=== PATIENT | female | born 1980 | race Asian ===

== ENCOUNTER → 2016-10-18 | Day surgery (SDC) | payer BC, OTHER ==
[~2016-10-18] MED LIST: Buffered Lidocaine 1% SYR 3ML* 3 ML/SYR SYRINGE INTRADERM ONE; Dexamethasone IV* 4 MG/ML 1 ML (4 MG) ONE; Famotidine IV* 10 MG/ML 2 ML (20 mg) IV ONE; Famotidine IV* 10 MG/ML 2 ML (20 mg) ONE; HYDROmorphone INJ* 1 MG/ML CARPUJECT SYRINGE IV PRN; Lidocaine 2% EPI 1:200000 MPF* 20 ML VIAL ONE; Lidocaine 2% MPF* 2 ML VIAL ONE; Metoclopramide TAB* 10 MG ONE; Metoclopramide TAB* 10 MG PO ONE; Midazolam* 1 MG/ML 5 ML VIAL (5 MG) ONE; Ondansetron INJ* 2 MG/ML VIAL ONE; Ondansetron ODT TAB* 4 MG PO PRN; Oxymetazoline 0.05% NASAL SPR* 15 ML BTL ONE; Propofol* 10 MG/ML 20 ML BTL IV PUSH ONE; fentaNYL* 50 MCG/ML 2 ML VIAL (100 MCG VIAL) IV PRN; fentaNYL* 50 MCG/ML 2 ML VIAL (100 MCG VIAL) ONE; oxyCODONE/Acetamin 5/325 MG* TAB ONE; oxyCODONE/Acetamin 5/325 MG* TAB PO PRN
[2016-10-18 08:02] LABS: Manual Entry Verification AS; UR Preg Internal Control QC Line Present; UR Preg Kit Lot# 6060104
[2016-10-18 11:35] VITALS: BP 120/91
--- NOTE | 2016-10-18 12:18 | OP ---
DATE OF OPERATION: 10/18/16 - [facility] DATE OF : 84 SURGEON: Wilfred Rivera MD ANESTHESIOLOGIST: Dav Corona MD ANESTHESIA: General PRE-OP DIAGNOSES: Deviated nasal septum and nasal dyspnea. POST-OP DIAGNOSES: Deviated nasal septum and nasal dyspnea. OPERATIVE PROCEDURE: Septoplasty and bilateral submucosal resection of the inferior turbinates. INDICATIONS: This is a 36-year-old female with longstanding history of nasal dyspnea, had tried nasal medication including nasal steroids for long periods of time without improvement, obvious deviation of the septum in the region of the nasal valve. DESCRIPTION OF PROCEDURE: The patient was brought to the operating room. General anesthesia was given. The patient was intubated with LMA. Nose was decongested with Afrin-placed pledgets. Then, subsequently 2% lidocaine with epinephrine was infiltrated into the mucosa of the septum on both sides of the inferior turbinates. Left hemitransfixion incision created. Mucoperichondrial flap was elevated. Quadrangular cartilage was disarticulated along the vomer- ethmoidal complex posteriorly along the maxillary crest. Portion of the crest was removed. Portion of the vomer-ethmoidal bone was removed, specifically a large spur on the left side on the back. Next, the quadrangular cartilage was scored on its concave surface, replaced in the midline, and secured with mattress sutures of chromic. Mia splint was then applied which was secured with 2-0 silk. Then, I turned my attention to the inferior turbinates. A small incision was made in the inferior turbinate mucosa. Submucosal elevation was carried out. A microshaver was used to remove the submucosal tissue to the point where some of the mucosal bone was removed and some portions of the submucosal tissue and much of the mucosa were spared. Ishmael packs were placed for hemostasis of the inferior turbinates and nasal dressing was applied. The patient was awakened and sent to the recovery room in stable condition. Instrument and sponge counts correct. Blood loss minimal. [id number] #: [id number] MTDD
== END | disposition home or self-care (01) ==
LOC: OR 07:02
PROVIDERS: ATTEND Otolaryngology
DX: J34.2 Deviated nasal septum (principal); J34.3 Hypertrophy of nasal turbinates
CPT/HCPCS: 81025; A9270-GY; J1100; J2250; J2405; J2704; J3010

== ENCOUNTER 2017-06-29 11:49 | Emergency (ER) | payer BC ==
--- NOTE | 2017-06-29 13:55 | UC ---
Back Pain HPI - HPI Summary HPI Summary: PROGRESSIVELY WORSENING BILATERAL HIP AND LOW BACK PAIN FOR 9 DAYS. NO DISCRETE TRAUMA OR INJURY. PT HAS HAD INTERMITTENT SIMILAR PAIN FOR YEARS. NO DIAGNOSIS EVER GIVEN. PAIN IS WORSE WHEN SITTING OR STANDING. NOT WORSE WITH AMBULATION. HAS DIFFICULTY EVEN DRIVING DUE TO PAIN. NO NUMBNESS/WEAKNESS OR SADDLE ANESTHESIA. IN THE PAST TOOK A MEDROL DOSE FABIANA AND FELT BETTER ON THE FIRST DAY BUT NOT VERY HELPFUL ON SUBSEQUENT DAYS. - History of Current Complaint Chief Complaint: UCBackPain Stated Complaint: BACK AND HIP PAIN Time Seen by Provider: 06/29/17 13:37 Hx Obtained From: Patient Hx Last Menstrual Period: 06/15/17 Onset/Duration: Sudden Onset, Still Present Timing: Constant Severity Initially: Severe Severity Currently: Severe Pain Intensity: 10 - PT IN EXAM ROOM IN NO ACUTE DISTRESS Pain Scale Used: 0-10 Numeric Back Pain: Is Discrete @ - LOW BACK Character: Dull, Aching Alleviating Factor(s): Position - LAYING DOWN Associated Signs And Symptoms: Negative: Swelling, Redness, Bruising, Fever, Weakness, Numbness, Tingling, Abdominal Pain, Flank Pain, Bladder Incontinence, Bowel Incontinence - Allergies/Home Medications Allergies/Adverse Reactions: Allergies Allergy/AdvReac Type Severity Reaction Status Date / Time Environmental Allergies Allergy Intermediate Eyes Uncoded 06/29/17 12:29 Itchy/Swollen/Red/Watery Home Medications: Home Medications Sertraline* [Zoloft*] 50 mg PO DAILY 06/29/17 [History Confirmed 06/29/17] PMH/Surg Hx/FS Hx/Imm Hx Previously Healthy: Yes Other History Of: Negative For: HIV, Hepatitis B, Hepatitis C, Anticoagulant Therapy - Surgical History Surgical History: Yes Surgery Procedure, Year, and Place: 05/2004 Right Wrist(NO METAL) JUST A DEBRIDEMENT septoplasty - Family History Known Family History: Positive: None Negative: Hypertension, Diabetes - Social History Alcohol Use: Rare Substance Use Type: None Smoking Status (MU): Never Smoked Tobacco When Did the Patient Quit Smoking/Using Tobacco: 2006 Review of Systems Constitutional: Negative Skin: Negative Respiratory: Negative Cardiovascular: Negative Gastrointestinal: Negative Genitourinary: Negative Musculoskeletal: Arthralgia, Myalgia All Other Systems Reviewed And Are Negative: Yes Physical Exam Triage Information Reviewed: Yes Appearance: Well-Appearing, No Pain Distress, Well-Nourished Vital Signs: Initial Vital Signs Temp 98.2 F 06/29/17 12:30 Pulse 110 06/29/17 12:30 Resp 22 06/29/17 12:30 Pulse Ox 100 06/29/17 12:30 Vital Signs Reviewed: Yes Eyes: Positive: Conjunctiva Clear ENT: Positive: Hearing grossly normal Neck: Positive: Supple Respiratory: Positive: No respiratory distress, No accessory muscle use Cardiovascular: Positive: Pulses Normal Abdomen Description: Positive: Soft. Negative: CVA Tenderness (R), CVA Tenderness (L), Distended, Guarding Musculoskeletal: Positive: ROM Intact, No Edema, Other: - NO TENDERNESS OVER ANY BONY PROMINENCES OR OVER MUSCULATURE. NEG MARLEN/FAIR. NEG SLR. Neurological: Positive: Alert Psychological: Positive: Age Appropriate Behavior Skin: Negative: rashes Diagnostics - Laboratory Diagnostic Studies Completed/Ordered: URINE DIP UNREMARKABLE Back Pain Course/Dx - Differential Dx/Diagnosis Provider Diagnoses: LOW BACK/BILATERAL HIP PAIN - Physician Notifications Discussed Care With: Cristal Man - TRANSFER OF CARE TO DR. MAN AT SHIFT CHANGE Time Discussed With Above Provider: 14:35 Discharge - Discharge Plan Condition: Stable Disposition: OTHER Discharge Disposition Comment: TRANSFER OF CARE TO DR. MAN AT SHIFT CHANGE Referrals: Jenn Villagran MD [Primary Care Provider] -
--- NOTE | 2017-06-29 14:44 | RAD ---
INDICATION: Low back pain. COMPARISON: Comparison is made with a prior x-ray study of the lumbar spine from August 02, 2007. TECHNIQUE: 5 views of the lumbar spine were obtained including lateral, oblique, AP and a coned-down lateral view of the lumbar sacral junction. FINDINGS: The vertebra are in normal alignment. No fracture is seen. There is mild to moderate disc space narrowing and endplate spurring present at the L4-L5 and L5-S1 levels. IMPRESSION: MILD TO MODERATE DEGENERATIVE DISC DISEASE AT THE L4-L5 AND L5-S1 LEVELS.
--- NOTE | 2017-06-29 14:45 | RAD ---
INDICATION: Bilateral hip pain COMPARISON: CT September 02, 2015 TECHNIQUE: An AP view of the pelvis and AP views of the hip in neutral and abducted position were obtained FINDINGS: Bones: There are no acute bony findings. There is stable cystic change about the lateral femoral necks likely related to femoral-acetabular impingement Joint spaces: The hips articulate normally. The joint spaces are preserved. SI joints/symphysis: The SI joints and symphysis are intact. Other: None IMPRESSION: NO ACUTE BONY FINDINGS. SUSPECT FEMORAL-ACETABULAR IMPINGEMENT
[2017-06-29] MEDS ORDERED: Ketorolac INJ* 60 MG/2 ML VIAL IM ONE (14:49)
[2017-06-29 15:07] VITALS: BP 122/68
--- NOTE | 2017-06-29 21:08 | UC ---
Bolivar Bocanegra Nikita, scribed for Cristal Bradshaw DO on 06/29/17 at 1506 . Progress - Progress Note Progress Note: Pt was signed out from Dr. Mariano, awaiting Lumbar and Hip XRs. Lumbar Spine XR reveals MILD TO MODERATE DEGENERATIVE DISC DISEASE AT THE L4-L5 AND L5-S1 LEVELS. Hip XR reveals NO ACUTE BONY FINDINGS. SUSPECT FEMORAL-ACETABULAR IMPINGEMENT. [facility] physician has reviewed this radiology report and agrees. Reviewed pt with Dr. Mariano. Reviewed XRs. No acute findings. Pt agreed to try toradol shot followed by steroid burst.The patients condition is stable and will be discharged to home. The documentation as recorded by the Bolivar carey Nikita accurately reflects the service I personally performed and the decisions made by Leeann galvin Michelle A, DO.
== END 2017-06-29 15:39 | disposition home or self-care (01) ==
LOC: UCEAST 11:49
DX: M54.5 Low back pain (principal); M25.552 Pain in left hip; M25.551 Pain in right hip
CPT/HCPCS: 72110; 73523; 81003; 96372; 99212; G0463; J1885

== ENCOUNTER 2017-09-22 20:18 | Observation (INO) | payer BC ==
[2017-09-22] MEDS ORDERED: HYDROmorphone INJ* 1 MG/ML CARPUJECT SYRINGE IV ONE (21:46)
[2017-09-22] MEDS ORDERED: Ondansetron INJ* 2 MG/ML VIAL IV ONE (21:46)
[2017-09-22] MEDS ORDERED: Ketorolac INJ* 30 MG/ML 1 ML VIAL IV ONE (21:46)
[2017-09-22] MEDS ORDERED: NS 0.9% 1000 ML* 1,000 ML IV ONE (21:46)
[2017-09-22] MEDS ORDERED: LORazepam INJ* 2 MG/ML 1 ML VIAL IV PUSH ONE (23:25)
[2017-09-22] MEDS ORDERED: LORazepam INJ* 2 MG/ML 1 ML VIAL IV ONE (23:29)
[2017-09-23] MEDS ORDERED: LORazepam TAB(*) 1 MG PO ONE (00:37)
[2017-09-23] MEDS ORDERED: oxyCODONE/Acetamin 5/325 MG* TAB PO ONE (00:37)
--- NOTE | 2017-09-23 00:42 | ED ---
Eric Bocanegra Natalie, scribed for Ortiz Brambila MD on 09/22/17 at 2155 . Back Pain - HPI Summary HPI Summary: The pt is a 37 y/o F presenting to the ED c/o sudden back pain onset 18:00. She was standing at the table and got a burning sensation through lower back, causing her to fall to the floor screaming in pain. The pain is rated 8/10 in severity. The pain was described as and fuzzy and sharp. The pain is aggravated by movement and is alleviated by rest. The patient has treated the pain with Flexeril at 18:00 and Fentanyl BUTTON SPINDLER to no relief. Pt additionally c/o numbness. Pt denies problems with urination and BM. Pt has had back problems in the past, but this is more severe than normal. Shes had an MRI on her back in the past. She goes to physical therapy regularly. - History of Current Complaint Chief Complaint: EDBackInjuryPain Stated Complaint: BACK PAIN Time Seen by Provider: 09/22/17 21:17 Hx Obtained From: Patient Hx Last Menstrual Period: 11/20/15 Onset/Duration: Lasting Hours - started at 18:00, Still Present Onset/Duration: Started Hours Ago, Still Present Timing: Constant Severity Initially: Severe Severity Currently: Severe Pain Intensity: 8 Pain Scale Used: 0-10 Numeric Character: Sharp, Burning Aggravating Symptom(s): Movement Alleviating Symptom(s): Rest Associated Signs And Symptoms: Positive: Numbness, Other - NEGATIVE: abnormal urination and BM - Allergies/Home Medications Allergies/Adverse Reactions: Allergies Allergy/AdvReac Type Severity Reaction Status Date / Time Environmental Allergies Allergy Intermediate Eyes Uncoded 06/29/17 12:29 Itchy/Swollen/Red/Watery PMH/Surg Hx/FS Hx/Imm Hx Previously Healthy: No Endocrine/Hematology History: Denies: Hx Anticoagulant Therapy, Hx Diabetes, Hx Systemic Lupus Erythematosus, Hx Thyroid Disease Cardiovascular History: Denies: Hx Congestive Heart Failure, Hx Hypertension, Hx Pacemaker/ICD Respiratory History: Reports: Hx Asthma - Mild Asthma--not using an inhaler at this time. Denies: Hx Chronic Obstructive Pulmonary Disease (COPD), Hx Lung Cancer, Hx Pneumonia, Hx Pulmonary Embolism GI History: Denies: Hx Gall Bladder Disease, Hx Gastrointestinal Bleed, Hx Ulcer, Hx Urosepsis History: Denies: Hx Kidney Stones, Hx Renal Disease Musculoskeletal History: Reports: Other Musculoskeletal History - degenerative disc lower lumbar Denies: Hx Rheumatoid Arthritis, Hx Osteoporosis Sensory History: Reports: Hx Contacts or Glasses - both - will wear glasses DOS Denies: Hx Hearing Aid Opthamlomology History: Reports: Hx Contacts or Glasses - both - will wear glasses DOS Neurological History: Denies: Hx Dementia, Hx Migraine, Hx Seizures, Hx Transient Ischemic Attacks (TIA) Psychiatric History: Reports: Hx Depression Denies: Hx Anxiety, Hx Panic Disorder, Hx Schizophrenia, Hx Bipolar Disorder - Surgical History Surgery Procedure, Year, and Place: 05/2004 Right Wrist(NO METAL) JUST A DEBRIDEMENT Hx Anesthesia Reactions: No Infectious Disease History: No Infectious Disease History: Denies: Hx Clostridium Difficile, Hx Hepatitis, Hx Human Immunodeficiency Virus (HIV), Hx of Known/Suspected MRSA, Hx Shingles, Hx Tuberculosis, Hx Known/ Suspected VRE, Hx Known/Suspected VRSA, History Other Infectious Disease, Traveled Outside the [place] in Last 30 Days - Family History Known Family History: Negative: Hypertension, Diabetes - Social History Alcohol Use: Rare Substance Use Type: Reports: None Smoking Status (MU): Never Smoked Tobacco Review of Systems Positive: Other - normal BM Positive: other - normal urination Positive: Other - lower back pain Positive: Numbness All Other Systems Reviewed And Are Negative: Yes Physical Exam Triage Information Reviewed: Yes Vital Signs On Initial Exam: Initial Vitals Temp Pulse Resp BP Pulse Ox 98.5 F 73 14 141/74 100 09/22/17 20:19 09/22/17 20:19 09/22/17 20:19 09/22/17 20:19 09/22/17 20:19 Vital Signs Reviewed: Yes Appearance: Positive: Pain Distress - mild pain distress at rest Skin: Positive: Warm, Skin Color Reflects Adequate Perfusion, Dry Head/Face: Positive: Normal Head/Face Inspection Eyes: Positive: EOMI, BARRIE ENT: Positive: Normal ENT inspection Neck: Positive: Supple, Nontender Respiratory/Lung Sounds: Positive: Clear to Auscultation, Breath Sounds Present Cardiovascular: Positive: RRR Abdomen Description: Positive: Nontender, Soft Bowel Sounds: Positive: Present Musculoskeletal: Positive: Strength/ROM Intact, Other - moderate pain distress in legs, able to move legs Neurological: Positive: Normal, Sensory/Motor Intact, Alert, Oriented to Person Place, Time, Other - no neurological deficit Psychiatric: Positive: Affect/Mood Appropriate - Martine Coma Scale Coma Scale Total: 15 Diagnostics - Vital Signs Vital Signs Temp Pulse Resp BP Pulse Ox 09/22/17 20:43 65 115/81 100 09/22/17 20:37 63 100 09/22/17 20:19 98.5 F 73 14 141/74 100 - Laboratory Lab Statement: Any lab studies that have been ordered have been reviewed, and results considered in the medical decision making process. Back Pain Course/Dx - Course Course Of Treatment: BP noted and advised to follow up with PCP. Allergies noted. Medications reviewed. NO FOCAL NEUROLOGIC DEFICIT BY HISTORY OR EXAM IN THE ED. F/U PMD; RETURN IF WORSE. - Diagnoses Provider Diagnoses: Low back pain Discharge - Discharge Plan Condition: Stable Disposition: HOME Prescriptions: Lorazepam [Ativan 1 MG TAB] 1 mg PO Q8H PRN #10 tab MDD 3 PRN Reason: Pain oxyCODONE/Acetamin 5/325 MG* [Percocet 5/325 TAB*] 1 tab PO Q4H PRN #20 tab MDD 6 PRN Reason: Pain Patient Education Materials: Acute Low Back Pain (ED) Referrals: Mercedez Shaver MD [Primary Care Provider] - Additional Instructions: FOLLOW UP WITH YOUR DOCTOR. RETURN TO THE EMERGENCY DEPARTMENT FOR ANY WORSENING OF YOUR CONDITION; PAIN, WEAKNESS, DIFFICULTY CONTROLLING BOWEL OR BLADDER OR QUESTIONS OR CONCERNS. The documentation as recorded by the Eric carey Natalie accurately reflects the service I personally performed and the decisions made by me, Ortiz Brambila MD.
[2017-09-23] MEDS ORDERED: NS 0.9% 1000 ML* 1,000 ML IV ONE (00:53)
--- NOTE | 2017-09-23 03:15 | ED ---
Alfredo Bocanegra Tiffany, scribed for Mark Anthony Alcaraz on 09/23/17 at 0137 . Progress - Progress Note Progress Note: CT Lumbar Spine reveals, per radiologist, central disc bulge L4-L5 with mild stenosis. ED physician has reviewed this report. Course/Dx - Course Course Of Treatment: CT Lumbar Spine reveals, per radiologist, central disc bulge L4-L5 with mild stenosis. Patient is unable to walk. She will be admitted to the hospitalist. The patient is agreeable with this plan. - Diagnoses Provider Diagnoses: Intractable low back pain - Provider Notifications Discussed Care Of Patient With: Horacio Harmon Time Discussed With Above Provider: 01:45 Instructed by Provider To: Other - Dr. Harmon (hospitalist) agrees to admit the patient. The documentation as recorded by the Alfredo carey Tiffany accurately reflects the service I personally performed and the decisions made by Kieran galvin Emmanuel.
[2017-09-23 03:39] LABS: Hematocrit 41 % (35-47); Hemoglobin 13.8 g/dl (12.0-16.0); Mean Corpuscular HGB Conc 34 g/dl (31-36); Mean Corpuscular Hemoglobin 30 pg (27-31); Mean Corpuscular Volume 88 fL (80-97); Mean Platelet Volume 8 um3 (7.4-10.4); Red Blood Count 4.64 10^6/ul (4.0-5.4); Red Cell Distribution Width 13 % (10.5-15); White Blood Count 7.8 10^3/ul (3.5-10.8)
[2017-09-23 03:52] LABS: ALT 12 U/L (7-52); AST 13 U/L (13-39); Albumin 4.1 g/dL (3.2-5.2); Alkaline Phosphatase 38 U/L (34-104); Anion Gap 3 mmol/L (2-11); BUN/Creatinine Ratio 13.5 (8-20); Blood Urea Nitrogen 10 mg/dL (6-24); CO2 Carbon Dioxide 26 mmol/L (22-32); Calcium 8.6 mg/dL (8.6-10.3); Chloride 108 mmol/L (101-111); EGFR African American 114.9 (>60); EGFR Non-African American 89.3 (>60); Globulin 2.4 g/dL (2-4); Glucose 100 mg/dL (70-100); Potassium 4.2 mmol/L (3.5-5.0); Sodium 137 mmol/L (133-145); Total Protein 6.5 g/dL (6.4-8.9)
[2017-09-23 05:23] LABS: Urine Bacteria Absent (Absent); Urine Bilirubin Negative (Negative); Urine Glucose Negative (Negative); Urine Nitrite Negative (Negative)
--- NOTE | 2017-09-23 05:42 | HP ---
H&P (Free Text) History and Physical: PCP: Vahe Shaver MD Date/Time: 09/23/2017 0515 CC: chronic LBP w/ exacerbation HPI: Mrs Masterson is a 37YO female HX chronic LBP who has been having increased pain with sitting & standing for the past 2 days. Last night while sitting at the dinner table massaging her B flanks she experienced sudden severe increase in pain causing her vision to blur and her whole body to "buzz" and resulting in a fall. EMS was called by her partner. She denies weakness, loss of bowel/bladder or incontinence, rash, open wound, or other issues. PMedHx chronic LBP depression anxiety Ambulatory Orders HYDROcodone/ACET. 7.5/325 LIQ* [Lortab Elixir 7.5/325 per 15 ml *] 15 ml PO Q4H #300 ml MDD 6 10/18/16 Sertraline* [Zoloft*] 50 mg PO DAILY 06/29/17 predniSONE TAB* [Deltasone TAB*] 40 mg PO DAILY #10 tab 06/29/17 Lorazepam [Ativan 1 MG TAB] 1 mg PO Q8H PRN #10 tab MDD 3 09/23/17 oxyCODONE/Acetamin 5/325 MG* [Percocet 5/325 TAB*] 1 tab PO Q4H PRN #20 tab MDD 6 09/23/17 Allergies Environmental Allergies Allergy (Intermediate, Uncoded 06/29/17 12:29) Eyes Itchy/Swollen/Red/Watery PSurgHx TFCC debridement septoplasty SocHx: no tobacco, alcohol, or recreational drugs; lives with a female domestic partner; currently unemployed, 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 Father passed at 66 2nd mesothelioma. 1/ 2 sister has significant joint & mobility issues, has been recommended for B THAs & B TKAs. ROS: as above, otherwise reviewed and all were negative vitals: Vital Signs Temp 36.9 C 09/22/17 20:19 Pulse 70 09/22/17 23:00 Resp 16 09/23/17 01:49 BP 117/70 09/22/17 23:00 Pulse Ox 100 09/22/17 23:00 Intake & Output 09/22/17 09/22/17 09/23/17 11:59 23:59 11:59 Intake Total 1000 Balance 1000 Weight 76.204 kg Intake: IV Fluids 1000 Constitutional: NAD, normally developed, well-nourished female HEENM: atraumatic; sclera/conjunctiva: anicteric/clear; hearing: clinically intact; oropharynx: clear, mucosa moist Neck: soft tissue: non-tender; thyroid: normal Pulmonary: clear to auscultation bilaterally, good aeration, no accessory muscle use CV: RR/RR, normal S1S2, no carotid bruit, no jugular venous distention, 2+ B DP/ PT, no edema Abdominal: soft, non-distended, non-tender, no rebound/guarding/rigidity, normoactive bowel sounds, no hepatosplenomegaly or masses, no costovertebral angle tenderness Musculoskeletal: general: grossly intact; gait: stable, cautious Integumental: normal appearance and texture of exposed skin Psychiatric orientation: AA&O to PPS affect: calm mood: cooperative eye contact: good content: reliable responses: timely insight: good Testing: Lab Results 09/23/17 09/23/17 09/23/17 Range/Units 03:30 03:30 03:30 WBC 7.8 (3.5-10.8) 10^3/ul RBC 4.64 (4.0-5.4) 10^6/ul Hgb 13.8 (12.0-16.0) g/dl Hct 41 (35-47) % MCV 88 (80-97) fL MCH 30 (27-31) pg MCHC 34 (31-36) g/dl RDW 13 (10.5-15) % Plt Count 246 (150-450) 10^3/ul MPV 8 (7.4-10.4) um3 Neut % (Auto) 64.0 (38-83) % Lymph % (Auto) 29.3 (25-47) % Lasalle % (Auto) 4.9 (1-9) % Eos % (Auto) 1.4 (0-6) % Baso % (Auto) 0.4 (0-2) % Absolute Neuts (auto) 5.0 (1.5-7.7) 10^3/ul Absolute Lymphs (auto) 2.3 (1.0-4.8) 10^3/ul Absolute Monos (auto) 0.4 (0-0.8) 10^3/ul Absolute Eos (auto) 0.1 (0-0.6) 10^3/ul Absolute Basos (auto) 0 (0-0.2) 10^3/ul Absolute Nucleated RBC 0 10^3/ul Nucleated RBC % 0 INR (Anticoag Therapy) 1.10 H (0.77-1.02) APTT 33.0 (26.0-36.3) seconds Sodium 137 (133-145) mmol/L Potassium 4.2 (3.5-5.0) mmol/L Chloride 108 (101-111) mmol/L Carbon Dioxide 26 (22-32) mmol/L Anion Gap 3 (2-11) mmol/L BUN 10 (6-24) mg/dL Creatinine 0.74 (0.51-0.95) mg/dL Est GFR ( Amer) 114.9 (>60) Est GFR (Non-Af Amer) 89.3 (>60) BUN/Creatinine Ratio 13.5 (8-20) Glucose 100 (70-100) mg/dL Calcium 8.6 (8.6-10.3) mg/dL Total Bilirubin 0.90 (0.2-1.0) mg/dL AST 13 (13-39) U/L ALT 12 (7-52) U/L Alkaline Phosphatase 38 (34-104) U/L Total Protein 6.5 (6.4-8.9) g/dL Albumin 4.1 (3.2-5.2) g/dL Globulin 2.4 (2-4) g/dL Albumin/Globulin Ratio 1.7 (1-3) Beta HCG, Quant < 0.60 mIU/mL Urine Color Urine Appearance Urine pH (5-9) Ur Specific [place] (1.010-1.030) Urine Protein (Negative) Urine Ketones (Negative) Urine Blood (Negative) Urine Nitrate (Negative) Urine Bilirubin (Negative) Urine Urobilinogen (Negative) Ur Leukocyte Esterase (Negative) Urine WBC (Auto) (Absent) Urine RBC (Auto) (Absent) Ur Squamous Epith Cells (Absent) Urine Bacteria (Absent) Urine Glucose (Negative) 09/23/17 Range/Units 05:10 WBC (3.5-10.8) 10^3/ul RBC (4.0-5.4) 10^6/ul Hgb (12.0-16.0) g/dl Hct (35-47) % MCV (80-97) fL MCH (27-31) pg MCHC (31-36) g/dl RDW (10.5-15) % Plt Count (150-450) 10^3/ul MPV (7.4-10.4) um3 Neut % (Auto) (38-83) % Lymph % (Auto) (25-47) % Lasalle % (Auto) (1-9) % Eos % (Auto) (0-6) % Baso % (Auto) (0-2) % Absolute Neuts (auto) (1.5-7.7) 10^3/ul Absolute Lymphs (auto) (1.0-4.8) 10^3/ul Absolute Monos (auto) (0-0.8) 10^3/ul Absolute Eos (auto) (0-0.6) 10^3/ul Absolute Basos (auto) (0-0.2) 10^3/ul Absolute Nucleated RBC 10^3/ul Nucleated RBC % INR (Anticoag Therapy) (0.77-1.02) APTT (26.0-36.3) seconds Sodium (133-145) mmol/L Potassium (3.5-5.0) mmol/L Chloride (101-111) mmol/L Carbon Dioxide (22-32) mmol/L Anion Gap (2-11) mmol/L BUN (6-24) mg/dL Creatinine (0.51-0.95) mg/dL Est GFR ( Amer) (>60) Est GFR (Non-Af Amer) (>60) BUN/Creatinine Ratio (8-20) Glucose (70-100) mg/dL Calcium (8.6-10.3) mg/dL Total Bilirubin (0.2-1.0) mg/dL AST (13-39) U/L ALT (7-52) U/L Alkaline Phosphatase (34-104) U/L Total Protein (6.4-8.9) g/dL Albumin (3.2-5.2) g/dL Globulin (2-4) g/dL Albumin/Globulin Ratio (1-3) Beta HCG, Quant mIU/mL Urine Color Yellow Urine Appearance Clear Urine pH 6.0 (5-9) Ur Specific [place] 1.011 (1.010-1.030) Urine Protein Negative (Negative) Urine Ketones Trace H (Negative) Urine Blood 3+ H (Negative) Urine Nitrate Negative (Negative) Urine Bilirubin Negative (Negative) Urine Urobilinogen Negative (Negative) Ur Leukocyte Esterase Negative (Negative) Urine WBC (Auto) Absent (Absent) Urine RBC (Auto) Trace(0-2/hpf) (Absent) Ur Squamous Epith Cells Present H (Absent) Urine Bacteria Absent (Absent) Urine Glucose Negative (Negative) CT L-spine WO, personally reviewed: IMPRESSION: Central disc bulge L4-L5 Impression: 37F HX chronic LBP presents with exacerbation, intractable DIAGNOSIS & PLAN Primary acute on chronic LBP, intractable : pain control : PT evaluation : supportive care Secondary depression : review meds once reconciled anxiety : review meds once reconciled Admission Rational: observation for intractable LBP DVTp: DARSHAN Code Status: full
[2017-09-23] MEDS ORDERED: Ondansetron INJ* 2 MG/ML VIAL IV PRN (05:52)
[2017-09-23] MEDS ORDERED: Acetaminophen TAB* 325 MG PO PRN (05:52)
[2017-09-23 06:07] LABS: C Reactive Protein < 1.00 mg/L (< 5.00)
[2017-09-23] MEDS: fentaNYL* 50 MCG/ML 2 ML VIAL (100 MCG VIAL) IV SLOW PU PRN ×3 (07:05→18:10)
[2017-09-23] MEDS: Baclofen TAB* 10 MG PO PRN ×3 (07:11→21:23)
--- NOTE | 2017-09-23 08:59 | RAD ---
Indication: Low back pain. CT of the lumbar spine was obtained in the axial plane. Sagittal and coronal reconstructed images were obtained. The vertebral bodies appear normal in height. No compression fracture is noted. At L5-S1 there is degenerative disc disease present. Spondylitic ridge flattens the thecal sac. No central or foraminal stenosis is noted. At L4-L5 there is degenerative disc disease. Small to moderate central disc protrusion indents the thecal sac with mild facet and ligamentous hypertrophy. No foraminal stenosis is noted. At L3-L4, L2-L3 and L1-L2 disc space is normal. Aorta and visualized kidneys are grossly unremarkable. IMPRESSION: At L4-L5 small central disc protrusion indents the thecal sac with mild ligamentous hypertrophy. There may be some mild spinal stenosis present.
[2017-09-23] MEDS: Docusate CAP* 100 MG PO SCH ×2 (09:45→21:22)
[2017-09-23] MEDS: Omeprazole CAP* 20 MG PO SCH (09:46)
[2017-09-23] MEDS: oxyCODONE TAB* 5 MG TAB PO PRN ×4 (09:47→22:36)
[2017-09-23] MEDS: traMADol TAB* 50 MG PO PRN ×2 (13:33→21:23)
[2017-09-23] MEDS: buPROPion SR TAB.SR* 150 MG PO SCH (16:01)
[2017-09-23] MEDS: predniSONE TAB* 50 MG PO SCH (16:01)
[2017-09-24] MEDS: oxyCODONE TAB* 5 MG TAB PO PRN ×3 (03:30→13:07)
[2017-09-24] MEDS: traMADol TAB* 50 MG PO PRN (03:30)
[2017-09-24] MEDS: Omeprazole CAP* 20 MG PO SCH (05:34)
[2017-09-24] MEDS: Baclofen TAB* 10 MG PO PRN ×2 (05:34→14:27)
[2017-09-24] MEDS: predniSONE TAB* 50 MG PO SCH (08:53)
[2017-09-24] MEDS: buPROPion SR TAB.SR* 150 MG PO SCH (08:54)
[2017-09-24] MEDS: Docusate CAP* 100 MG PO SCH (08:55)
[2017-09-24] MEDS ORDERED: Sertraline* 50 MG TAB PO SCH (09:00)
[2017-09-24] MEDS ORDERED: Sertraline* 100 MG TAB PO SCH (09:00)
[2017-09-24] MEDS ORDERED: Sertraline* 25 MG TAB PO SCH (09:00)
--- NOTE | 2017-09-24 11:28 | PN ---
Subjective Date of Service: 09/24/17 Interval History: Pt still has severe LBP. Had not been evaluated by PT yet Denies lag numbness or incontinence. Had similar problems before and was treated with prednisone Objective Active Medications: Acetaminophen (Tylenol Tab*) 650 mg PO Q6H PRN PRN Reason: FEVER/PAIN Baclofen (Lioresal Tab*) 10 mg PO TID PRN PRN Reason: SPASMS - BACK Last Admin: 09/24/17 05:34 Dose: 10 mg Bupropion HCl (Wellbutrin Sr Tab*) 300 mg PO DAILY [facility] Last Admin: 09/24/17 08:54 Dose: 300 mg Docusate Sodium (Colace Cap*) 200 mg PO BID [facility] Last Admin: 09/24/17 08:55 Dose: 200 mg Fentanyl Citrate (Fentanyl*) 25 mcg IV SLOW PU Q2H PRN PRN Reason: PAIN Last Admin: 09/23/17 18:10 Dose: 25 mcg Omeprazole (Prilosec Cap*) 20 mg PO DAILY@0600 [facility] Last Admin: 09/24/17 05:34 Dose: 20 mg Ondansetron HCl (Zofran Inj*) 4 mg IV Q6H PRN PRN Reason: NAUSEA Oxycodone HCl (Roxycodone Tab*) 5 mg PO Q4H PRN PRN Reason: PAIN Last Admin: 09/24/17 08:53 Dose: 5 mg Prednisone (Deltasone Tab*) 50 mg PO DAILY [facility] Last Admin: 09/24/17 08:53 Dose: 50 mg Sertraline HCl (Zoloft*) 100 mg PO DAILY [facility] Last Admin: 09/24/17 08:54 Dose: 100 mg Sertraline HCl (Zoloft*) 25 mg PO DAILY [facility] Last Admin: 09/24/17 08:54 Dose: 25 mg Tramadol HCl (Ultram*) 50 mg PO Q6H PRN PRN Reason: PAIN Last Admin: 09/24/17 03:30 Dose: 50 mg Vital Signs - 8 hr 09/24/17 09/24/17 09/24/17 03:30 03:33 05:34 Temperature 98.1 F Pulse Rate 75 Respiratory 14 16 12 Rate Blood Pressure 111/79 (mmHg) O2 Sat by Pulse 99 Oximetry 09/24/17 09/24/17 09/24/17 07:39 08:53 09:04 Temperature 98.2 F Pulse Rate 69 Respiratory 16 16 16 Rate Blood Pressure 117/65 (mmHg) O2 Sat by Pulse 100 Oximetry Oxygen Devices in Use Now: None Appearance: 37 yo f in nAD, aAOx3 Eyes: No Scleral Icterus, PERRLA Ears/Nose/Mouth/Throat: NL Teeth, Lips, Gums, Mucous Membranes Moist Neck: NL Appearance and Movements; NL JVP, Trachea Midline Respiratory: Symmetrical Chest Expansion and Respiratory Effort, Clear to Auscultation Cardiovascular: NL Sounds; No Murmurs; No JVD, RRR Abdominal: - - back:tender in b/l flank-muscles at the level of L4-5 Lymphatic: No Cervical Adenopathy Extremities: No Edema, No Clubbing, Cyanosis Skin: No Rash or Ulcers, No Nodules or Sclerosis Neurological: Alert and Oriented x 3, NL Muscle Strength and Tone Result Diagrams: 09/23/17 03:30 09/23/17 03:30 Assess/Plan/Problems-Billing Assessment: 37 yo F with h/o depression and LBP - Patient Problems (1) Acute bilateral low back pain Comment: CT shows small disc protrusion. Started on Prednisone yesterday, doing a lillte better cont current tx with narcotics and Prednisone Awaiting PT eval Possible D/C today or tomorrow (2) Depression Comment: controlled on Wellbutrin and Zoloft (3) DVT prophylaxis Comment: low risk , ambulation Status and Disposition: OBV
[2017-09-24] MEDS: fentaNYL* 50 MCG/ML 2 ML VIAL (100 MCG VIAL) IV SLOW PU PRN (15:35)
[2017-09-24 15:40] VITALS: BP 118/68
--- NOTE | 2017-09-24 22:28 | DS ---
CC: Dr. Mercedez Shaver * DISCHARGE SUMMARY: DATE OF ADMISSION: 09/23/17 DATE OF DISCHARGE: 09/24/17 PRIMARY CARE PROVIDER: Dr. Mercedez Shaver. DISCHARGE DIAGNOSIS: Acute lower back pain with lumbar spine CT showing small central disk protrusion at L4-L5 level. SECONDARY DIAGNOSES: 1. Depression. 2. History of back pain in the past. STUDIES PERFORMED DURING THE HOSPITAL STAY: Included lumbar spine CT obtained at admission, which showed impression "at L4-L5 levels, small central disk protrusion, indents the thecal sac with mild ligamentous hypertrophy. There may be some mild spinal stenosis present." MEDICATIONS AT DISCHARGE: Include: 1. Ultram 50 mg p.o. 3 times a day p.r.n. pain. 2. Soma 350 mg up to 3 times a day for spasms. 3. Prednisone taper 40 mg daily for 2 days, then 20 mg daily for 2 days, then 10 mg daily for 2 days, then stop. 4. Zoloft 125 mg daily. 5. Wellbutrin SR 300 mg daily. HOSPITALIZATION COURSE: Anna Masterson is a 37-year-old female who presented complaining of acute lower back pain. Back pain was intractable. The patient was placed on overnight observation. By the time of discharge, she did fairly well. She was placed on steroids, antispasmodics, and narcotic pain medications. She was able to ambulate without any major problem although trying to get placed back in bed was somewhat difficult. She was necrologically intact throughout her hospital stay and she is going to be discharged home with recommendation to follow up with Dr. Mercedez Shaver in approximately 4 to 7 days. Please note that the patient was prescribed Soma and Ultram both of them with 10 - day supply. The patient's I-STOP was checked and the last time the patient had a narcotic prescription was prescribed by Dr. España a 3-day supply of Percocet at the beginning of 2016. For physical exam at the time of discharge, please see daily progress notes. [id number]/[facility] #: [id number] MTDD
== END 2017-09-24 15:55 | disposition home or self-care (01) ==
LOC: ED 20:18 → SSU 09-23 05:22
PROVIDERS: ADMIT Hospitalist; ATTEND Internal Medicine
DX: M54.5 Low back pain (principal); M51.26 Other intervertebral disc displacement, lumbar region; F32.9 Major depressive disorder, single episode, unspecified; Z79.899 Other long term (current) drug therapy
CPT/HCPCS: 36415; 72131; 80053; 81003; 81015; 84702; 85025; 85610; 85730; 86140; 96374; 96375; 96376; 99284; A9270-GY; G0378; J1170; J1885; J2060; J2405; J3010; J7512

== ENCOUNTER 2018-02-15 12:29 | Emergency (ER) | payer BC ==
--- NOTE | 2018-02-15 12:47 | UC ---
Hand/Wrist HPI - HPI Summary HPI Summary: 37 yo female presents with right hand pain. She tells me that she does [employer] and 3 weeks ago was breaking boards in class with her fist. Since that time has had 3rd MCP pain - is improving, but still bothersome when making a fist. Has been taking ibuprofen for pain with good relief. Denies numbness or tingling. - History Of Current Complaint Stated Complaint: HAND INJURY Time Seen by Provider: 02/15/18 12:47 Hx Obtained From: Patient Hx Last Menstrual Period: 11/20/15 Onset/Duration: Sudden Onset Severity Initially: Moderate Severity Currently: Mild Pain Intensity: 2 Pain Scale Used: 0-10 Numeric Aggravating Factor(s): Flexion - Allergies/Home Medications Allergies/Adverse Reactions: Allergies Allergy/AdvReac Type Severity Reaction Status Date / Time Environmental Allergies Allergy Intermediate Eyes Uncoded 02/15/18 12:50 Itchy/Swollen/Red/Watery Home Medications: Home Medications Norethindr/Eth Estradiol(Nf) [Lo Loestrin Fe (NF)] 1 tab PO DAILY 02/15/18 [ History Confirmed 02/15/18] PMH/Surg Hx/FS Hx/Imm Hx Psychological History: Anxiety, Depression Other History Of: Negative For: HIV, Hepatitis B, Hepatitis C, Anticoagulant Therapy - Surgical History Surgical History: Yes Surgery Procedure, Year, and Place: 05/2004 Right Wrist(NO METAL) JUST A DEBRIDEMENT. 10/2016 SEPTOPLASTY - Family History Known Family History: Positive: None Negative: Hypertension, Diabetes - Social History Occupation: Employed Full-time Lives: With Family Alcohol Use: None Substance Use Type: None Smoking Status (MU): Former Smoker Type: Cigarettes Amount Used/How Often: 1/2 pack/day Length of Time of Smoking/Using Tobacco: 6 yrs Have You Smoked in the Last Year: No When Did the Patient Quit Smoking/Using Tobacco: 2006 - Immunization History Most Recent Influenza Vaccination: 2016 Most Recent Pneumonia Vaccination: never Review of Systems Constitutional: Negative Skin: Negative Respiratory: Negative Cardiovascular: Negative Gastrointestinal: Negative Neurovascular: Negative Musculoskeletal: Other: - Right 3rd MCP pain Neurological: Negative Psychological: Negative All Other Systems Reviewed And Are Negative: Yes Physical Exam - Summary Physical Exam Summary: GENERAL: NAD. WDWN. No pain distress. SKIN: No rashes, sores, lesions, or open wounds. NECK: Supple. Nontender. No lymphadenopathy. CHEST: No accessory muscle use. Breathing comfortably and in no distress. CV: RRR. Without m/r/g. Pulses intact radial and ulnar. MSK: Mild TTP over 3rd MCP. FROM. Strength 5/5 including apprenticeship consultant strength. No edema or obvious bony deformities. Wrist NTTP. NEURO: Alert. Sensations intact hand and all fingers. PSYCH: Age appropriate behavior. Triage Information Reviewed: Yes Hand/Wrist Course/Dx - Course Course Of Treatment: XR: IMPRESSION: No fracture of the right hand is noted. Suspect bone contusion. Advised to continue with RICE and ibuprofen. 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 - Differential Dx/Diagnosis Provider Diagnoses: Right hand pain Discharge - Sign-Out/Discharge Documenting (check all that apply): Discharge/Admit/Transfer - Discharge Plan Condition: Stable Disposition: HOME Patient Education Materials: Contusion in Adults (ED) Referrals: Mercedez Shaver MD [Primary Care Provider] - Additional Instructions: If you develop a fever, shortness of breath, chest pain, new or worsening symptoms - please call your PCP or go to the ED. - Billing Disposition and Condition Condition: STABLE Disposition: HOME
[2018-02-15 12:55] VITALS: BP 111/65
--- NOTE | 2018-02-15 13:13 | RAD ---
Indication: Right hand injury. 4 views of the right hand demonstrates no fracture. No other bone or joint abnormality is noted. IMPRESSION: No fracture of the right hand is noted
== END 2018-02-15 13:27 | disposition home or self-care (01) ==
LOC: UCEAST 12:29
DX: Z87.891 Personal history of nicotine dependence (principal); M79.641 Pain in right hand; W22.8XXA Striking against or struck by other objects, initial encounter; Y93.75 Activity, martial arts; Y92.9 Unspecified place or not applicable
CPT/HCPCS: 99211; G0463

== ENCOUNTER 2018-08-15 06:55 | Observation (INO) | payer BC ==
[~2018-08-15 06:55] MED LIST changes: +Buffered Lidocaine 0.9% SYRIN* 5 ML/SYR SYRINGE INTRADERM ONE; -Buffered Lidocaine 1% SYR 3ML* 3 ML/SYR SYRINGE INTRADERM ONE; +Dexamethasone IV* 4 MG/ML 1 ML (4 MG) IV SLOW PU ONE; -HYDROmorphone INJ* 1 MG/ML CARPUJECT SYRINGE IV PRN; -Lidocaine 2% EPI 1:200000 MPF* 20 ML VIAL ONE; -Lidocaine 2% MPF* 2 ML VIAL ONE; -Metoclopramide TAB* 10 MG ONE; -Metoclopramide TAB* 10 MG PO ONE; -Midazolam* 1 MG/ML 5 ML VIAL (5 MG) ONE; +Morphine PCA ADULT* 5 MG/ML 30 ML ONE; -Ondansetron INJ* 2 MG/ML VIAL ONE; -Ondansetron ODT TAB* 4 MG PO PRN; -Oxymetazoline 0.05% NASAL SPR* 15 ML BTL ONE; -Propofol* 10 MG/ML 20 ML BTL IV PUSH ONE; +ceFAZolin 2 GM in NS PREMIX(*) 2 GM/100 ML BAG IVPB ONE; -fentaNYL* 50 MCG/ML 2 ML VIAL (100 MCG VIAL) IV PRN; -fentaNYL* 50 MCG/ML 2 ML VIAL (100 MCG VIAL) ONE; -oxyCODONE/Acetamin 5/325 MG* TAB ONE; -oxyCODONE/Acetamin 5/325 MG* TAB PO PRN
[2018-08-15] MEDS ORDERED: Propofol* 10 MG/ML 20 ML BTL IV PUSH ONE (07:09)
[2018-08-15] MEDS ORDERED: Rocuronium* 10 MG/ML VIAL ONE (07:10)
[2018-08-15] MEDS ORDERED: Lidocaine 2% PF * 5 ML VIAL ONE (07:10)
[2018-08-15] MEDS ORDERED: Midazolam* 1 MG/ML 5 ML VIAL (5 MG) ONE (07:12)
[2018-08-15] MEDS ORDERED: fentaNYL* 50 MCG/ML 2 ML VIAL (100 MCG VIAL) ONE ×6 (07:12→12:19)
[2018-08-15] MEDS ORDERED: Lidocaine 1% MPF wEPI 200,000* 30 ML SDV ONE (07:22)
[2018-08-15] MEDS ORDERED: Thrombin 5,000 UNITS* 1 APPLIC KIT - topical use - TOPICAL ONE (07:23)
[2018-08-15] MEDS ORDERED: Bacitracin IV* 50,000 UNITS INJ ONE (07:23)
[2018-08-15] MEDS ORDERED: oxyCODONE/Acetamin 5/325 MG* TAB PO PRN ×3 (07:30→19:52)
[2018-08-15] MEDS ORDERED: Naloxone* 0.4 MG/ML 1 ML VIAL IV PRN ×2 (07:30→11:25)
[2018-08-15] MEDS ORDERED: HYDROcodone/ACETAMIN 5-325 MG* 1 TAB PO PRN ×2 (07:30→11:02)
[2018-08-15] MEDS ORDERED: DiMENhydriNATE IV* 50 MG/ML VIAL IV PUSH PRN ×2 (07:30→11:25)
[2018-08-15] MEDS ORDERED: EPHEDrine (Pressors)* 50 MG/ML VIAL ONE (09:02)
[2018-08-15] MEDS ORDERED: Ondansetron INJ* 2 MG/ML VIAL ONE (09:45)
[2018-08-15] MEDS ORDERED: Glycopyrrolate IV* 0.2 MG/ML 1 ML VIAL ONE (09:46)
[2018-08-15] MEDS ORDERED: Neostigmine Methylsulfate* 2 MG/2 ML SYRINGE ONE (09:46)
[2018-08-15] MEDS: fentaNYL* 50 MCG/ML 2 ML VIAL (100 MCG VIAL) IV PRN ×5 (10:40→12:20)
[2018-08-15] MEDS ORDERED: Acetaminophen TAB* 325 MG PO PRN ×2 (11:02→11:25)
[2018-08-15] MEDS ORDERED: Magnesium Hydroxide LIQ* 30 ML UDC PO PRN ×2 (11:02→11:25)
[2018-08-15] MEDS ORDERED: Ondansetron INJ* 2 MG/ML VIAL IV PRN ×2 (11:02→11:25)
[2018-08-15] MEDS ORDERED: HYDROcodone/ACETAMIN 5-325 MG* 1 TAB ONE (11:14)
[2018-08-15] MEDS: HYDROcodone/ACETAMIN 5-325 MG* 1 TAB PO PRN ×2 (14:08→18:35)
[2018-08-15] MEDS: Cyclobenzaprine TAB* 10 MG PO PRN (20:47)
[2018-08-15] MEDS: oxyCODONE/Acetamin 5/325 MG* TAB PO PRN (20:48)
--- NOTE | 2018-08-15 21:25 | OP ---
DATE OF OPERATION: 08/15/18 - ROOM #339 DATE OF : 84 SURGEON: Yelena Max MD COOK FROZEN DESSERT: JOAQUIN Blue. The case was done with the assistance of surgical PA because of the complexity of the case. ANESTHESIA: General. PRE-OP DIAGNOSES: Degenerative disk disease and herniated nucleus pulposus L4- 5. POST-OP DIAGNOSES: Degenerative disk disease and herniated nucleus pulposus L4- 5. OPERATIVE PROCEDURE: The patient underwent right-sided approach for bilateral L4-5 laminectomies and diskectomy L4-5. ESTIMATED BLOOD LOSS: 30 cc. COMPLICATIONS: None. SUMMARY: The patient is a very pleasant 38-year-old female with complaints of back pain radiating to both hips. The patient had MRI findings consistent with degenerative disk disease at L4-5 with large central and right eccentric disk herniation. The patient developed episodes of urinary urgency and was offered the option of surgical intervention in the form of lumbar decompression and diskectomy. After explaining all expectations, limitations, possible complications for the procedure with complications including but not limited to bleeding, infection, risk of injury to adjacent structure, paralysis, , need for additional procedure, anesthesia risk, stroke, blindness, cancer, instability, need for additional procedures, spinal fluid leak, anesthesia risk , loss of bladder and bowel control, the patient was agreeable to proceed with surgery. Informed consent was obtained. The patient understood that his condition might not improve and in fact may get worse after the surgery and that he may need to have additional procedures in the future. She also understood that the intraoperative plan may be modified according to the intraoperative findings and conditions. DESCRIPTION OF PROCEDURE: The patient was brought to the operating room, was placed under general anesthesia by the anesthesia team. She was carefully positioned prone on the Jose frame on a Yousif table and all bony prominences were meticulously padded. The skin was prepped and draped in the standard fashion and after appropriate surgical pause and patient identification , a small right paramedian incision over the L4-5 disk space was marked on the skin with the assistance of intraoperative fluoroscopy. The skin incision site was infiltrated with local anesthetic, a #10 surgical blade was used to incise the skin. The incision was carried down to the subcutaneous tissue with Bovie cautery and the dorsal fascia was gently divided with #10 surgical blade. Then , over series of dilators, a METRx tubular retractor was inserted and was centered over the right L4 lamina. Operative microscope was brought into the field and after carefully exposing the base of the spinous process, the right lamina of L4 as well as the L4-5 medial part of the facet, a high speed drill and Kerrison rongeur were used to fashion the laminectomy at L4 and 5 extending towards the left side. The ligamentum flavum was gently reflected with use of [place] #4 and dental instrument and was resected with the use of Kerrison punches. The right L5 nerve root was gently exposed with the use of Kerrison rongeurs and after gentle medial retraction of the thecal sac and the nerve root , the large disk protrusion was identified as expected from the preoperative MRI. Nerve root retractor was used to apply gentle traction and after incising annulus fibrosus with a #15 surgical blade a standard diskectomy was performed making sure that adequate decompression of the anterior portion of the thecal sac was achieved. At the end of the diskectomy, the thecal sac and the nerve root was found to be free of any pressure phenomenon and foraminotomy was also performed with Kerrison punches. After copious irrigation and confirmation of meticulous hemostasis and meticulous inspection, the tubular retractor was gently removed. After meticulous hemostasis and copious irrigation, the wound was closed in layers with 0 interrupted Vicryl suture approximated dorsal fascia and two interrupted inverted Vicryl suture to approximate the subcutaneous tissue. The skin was then covered with Dermabond. After the procedure, all counts were reported to be correct. The patient remained hemodynamically stable throughout the case. I was present and scrubbed for the entirety of the case. The case was done with the assistance of the surgical PA because of the complexity of the case. [id number]/[facility] #: [id number] NILSON
[2018-08-16] MEDS: Morphine VIAL* 4 MG/ML VIAL (1 ml vial) IV PRN ×3 (00:07→14:16)
[2018-08-16] MEDS: oxyCODONE/Acetamin 5/325 MG* TAB PO PRN ×4 (02:20→15:43)
[2018-08-16] MEDS: Cyclobenzaprine TAB* 10 MG PO PRN ×2 (07:42→14:17)
--- NOTE | 2018-08-16 08:16 | PN ---
Progress Note - Progress Note Date of Service: 08/16/18 SOAP: Subjective: []No events ON. Tolerated procedure well yesterday. Ambulates, Voids, Tolerates po well. Still some back pain at incision site. Objective: []VSS, Afebrile AAOx3 BARRIE, CN II-XII grossly intact Motor 5/5 all extremities Sensory grossly intact to light touch Assessment: []38 yof POD#1 Rt L4-5 MIS decompressive laminectomy and discectomy Plan: []Monitor VS, Neurochecks Encourage ambulation Pain control DC planning later today or tomorrow. Shanita Max MD
[2018-08-16] MEDS ORDERED: Sertraline* 50 MG TAB PO SCH ×2 (09:00)
[2018-08-16] MEDS ORDERED: buPROPion SR TAB.SR* 100 MG PO SCH (09:00)
[2018-08-16] MEDS ORDERED: buPROPion SR TAB.SR* 200 MG PO SCH (09:00)
[2018-08-16] MEDS ORDERED: busPIRone TAB* 15 MG PO SCH ×2 (09:00)
[2018-08-16 10:46] VITALS: BP 108/65
== END 2018-08-16 17:15 | disposition home or self-care (01) ==
LOC: OR 06:55 → AA 11:02 → OR 11:18 → SSU 12:30 → OR 08-16 11:59 → SSU 08-16 12:00
PROVIDERS: ADMIT Neurological Surgery; ATTEND Neurological Surgery
DX: M51.36 Other intervertebral disc degeneration, lumbar region (principal); M51.26 Other intervertebral disc displacement, lumbar region
CPT/HCPCS: 36430; 76001; 81025; 96374; 96375; 96376; A9270-GY; G0378; J0690; J1100; J2001; J2250; J2270; J2405; J2704; J3010

== ENCOUNTER 2020-01-18 23:53 | Emergency (ER) | payer BC ==
[2020-01-19 00:02] VITALS: BP 128/74
--- OUTSIDE RECORDS SUMMARY | 2020-01-19 00:07 | XMS REPORT | Continuity of Care Document ---
:1980 External Reference #:[id number] Author Name Madison Ortiz MD (transmitted by agent of provider Larisa Nunez) Address [address] [place] [address] Care Team Providers Name Role Phone Mercedez Shaver MD - Family Medicine Care Team Information Cost Estimator Problems Active Problems Provider Date Lower abdominal pain Hanh Sanchez NP Onset: 11/29/2015 Social History Type Date Description Comments Sex Unknown Cigarette Use Former Cigarette Smoker ETOH Use Denies alcohol use Recreational Drug Use Never Used Drugs Tobacco Use Start: Unknown End: Patient is a former smoker Unknown Smoking Status Reviewed: 08/07/18 Patient is a former smoker Exercise Type/Frequency Exercises regularly Seat Belt/Car Seat Always uses seat belt Allergies, Adverse Reactions, Alerts Description No Known Drug Allergies Medications Active Medications SIG Qnty Indications Ordering Provider Date Valtrex take 2 pills 30tabs Susie Pollock, 11/07/2016 1gm Tablets twice a day x 1 CNM as needed 10/20 take 1 tablet by 168tabs Madison Ortiz, 1-20mg-mcg mouth every day Tablets Medications Administered in Office Medication SIG Qnty Indications Ordering Provider Date PT SCRN Tbco Id as Non User Madison Ortiz MD 12/11/2019 Injection PT SCRN Tbco Id as Non User Madison Ortiz MD 08/07/2018 Injection Immunizations Description No Information Available Vital Signs Date Vital Result Comment 12/11/2019 10:06am BP Systolic 116 mmHg BP Diastolic 76 mmHg Height 65.5 inches 5'5.50" Weight 183.00 lb BMI (Body Mass Index) 30.0 kg/m2 0 08/07/2018 10:50am BP Systolic 122 mmHg BP Diastolic 78 mmHg Height 65.5 inches 5'5.50" Weight 172.00 lb BMI (Body Mass Index) 28.2 kg/m2 Last Menstrual Period [id number] Results Test Acquired Date Facility Test Result H/L Range Note Laboratory test 12/11/2019 [facility] Cyt[facility] <pending> [place] [address] [phone] Procedures Description No Information Available Medical Devices Description No Information Available Encounters Type Date Location Provider Dx Diagnosis Office Visit 12/11/2019 [facility] Madison Ortiz, Z01.419 Encntr for head operator exam 10:40a (general) (routine) w/o abn findings Assessments Date Code Description Provider 12/11/2019 Z01.419 Encounter for gynecological examination Madison Ortiz MD (general) (routine) without abnormal findings Plan of Treatment 08/07/2018 - Madison Ortiz, MDR10.30 Lower abdominal pain, unspecifiedComments:Pt with improvement of abdominal pain on low dose OCP. PT to continue with this therapy. PT to f/u for routine head operator well care in 12/2018. Functional Status Description No Information Available Mental Status Description No Information Available Referrals Description No Information Available
[2020-01-19] MEDS ORDERED: Bupivacaine 0.5% SDV PF* 30ML VIAL INJ ONE (00:22)
--- NOTE | 2020-01-19 00:36 | ED ---
Laceration/Wound HPI - HPI Summary HPI Summary: Patient is a 39 y/o F presenting to [facility] with a laceration to the 3rd finger of her left hand. She states that she was making face masks when she sustained the laceration to this finger. Patient notes that she immediately cleaned the laceration by running water over the finger and then dried the area with paper towel. PMHx is denied in the room by the patient. Home medications and allergies are reviewed. No fever as vitals show temp of 98.7 F. Home Medications Medication Instructions Recorded Confirmed Type Sertraline* [Zoloft*] 125 mg PO QAM 06/29/17 08/15/18 History buPROPion SR TAB* [Wellbutrin SR 300 mg PO QAM 01/03/18 08/15/18 History TAB*] Norethindrone AC-Eth Estradiol 1 tab PO QAM 08/08/18 08/15/18 History [Junel 1 mg-20 Mcg Tablet] busPIRone TAB* [Buspar TAB *] 15 mg PO QAM 08/08/18 08/15/18 History - History of Current Complaint Stated Complaint: FINGER LAC PER PT Hx Obtained From: Patient Hx Last Menstrual Period: 11/20/15 Mechanism of Injury: Sharp/Blunt Trauma Onset/Duration: Still Present Current Severity: Moderate Pain Intensity: 4 Pain Scale Used: 0-10 Numeric Associated Signs & Symptoms: Negative - Additional Pertinent History Primary Care Physician: [id number] - Allergy/Home Medications Allergies/Adverse Reactions: Allergies Allergy/AdvReac Type Severity Reaction Status Date / Time Environmental Allergies Allergy Intermediate Eyes Uncoded 01/19/20 00:00 Itchy/Swollen/Red/Watery Home Medications: Home Medications Sertraline* [Zoloft*] 125 mg PO QAM 06/29/17 [History Confirmed 08/15/18] buPROPion SR TAB* [Wellbutrin SR TAB*] 300 mg PO QAM 01/03/18 [History Confirmed 08/15/18] Norethindrone AC-Eth Estradiol [Junel 1 mg-20 Mcg Tablet] 1 tab PO QAM 08/08/18 [History Confirmed 08/15/18] busPIRone TAB* [Buspar TAB *] 15 mg PO QAM 08/08/18 [History Confirmed 08/15/18] PMH/Surg Hx/FS Hx/Imm Hx Endocrine/Hematology History: Denies: Hx Anticoagulant Therapy, Hx Diabetes, Hx Systemic Lupus Erythematosus, Hx Thyroid Disease Cardiovascular History: Denies: Hx Congestive Heart Failure, Hx Hypertension, Hx Pacemaker/ICD, Other Cardiovascular Problems/Disorders Respiratory History: Reports: Hx Asthma - Mild Asthma--not using an inhaler at this time. Denies: Hx Chronic Obstructive Pulmonary Disease (COPD), Hx Lung Cancer, Hx Pneumonia, Hx Pulmonary Embolism, Other Respiratory Problems/Disorders GI History: Denies: Hx Gall Bladder Disease, Hx Gastrointestinal Bleed, Hx Ulcer, Hx Urosepsis, Other GI Disorders History: Reports: Other Problems/Disorders - Urinary urge incontinence, wears a pad Denies: Hx Kidney Infection, Hx Kidney Stones, Hx Renal Disease Musculoskeletal History: Reports: Hx Arthritis, Hx Back Problems, Other Musculoskeletal History - degenerative disc lower lumbar Denies: Hx Rheumatoid Arthritis, Hx Osteoporosis Sensory History: Reports: Hx Contacts or Glasses - both - will wear glasses DOS Denies: Hx Hearing Aid Opthamlomology History: Reports: Hx Contacts or Glasses - both - will wear glasses DOS Neurological History: Reports: Other Neuro Impairments/Disorders - PAIN CLINIC PT. Denies: Hx Dementia, Hx Migraine, Hx Seizures, Hx Transient Ischemic Attacks (TIA) Psychiatric History: Reports: Hx Anxiety, Hx Depression Denies: Hx Panic Disorder, Hx Schizophrenia, Hx Bipolar Disorder - Surgical History Surgery Procedure, Year, and Place: 05/2004 Right Wrist DEBRIDEMENT. 10/2016 SEPTOPLASTY. PARTIAL DISCECTOMY L4-5 08/15/18-NO METAL. LASIK EYE SURGERY 07/03 Hx Anesthesia Reactions: No Infectious Disease History: No Infectious Disease History: Denies: Hx Clostridium Difficile, Hx Hepatitis, Hx Human Immunodeficiency Virus (HIV), Hx of Known/Suspected MRSA, Hx Shingles, Hx Tuberculosis, Hx Known/ Suspected VRE, Hx Known/Suspected VRSA, History Other Infectious Disease, Traveled Outside the [place] in Last 30 Days - Family History Known Family History: Negative: Hypertension, Diabetes - Social History Alcohol Use: None Substance Use Type: Reports: None Smoking Status (MU): Former Smoker Type: Cigarettes Amount Used/How Often: 1/2 pack/day Length of Time of Smoking/Using Tobacco: 6 yrs Have You Smoked in the Last Year: No Review of Systems Negative: Fever - No fever as vitals show temp of 98.7 F. Skin: Other - positive - 3rd finger of left hand laceration All Other Systems Reviewed And Are Negative: Yes Physical Exam - Summary Physical Exam Summary: Appearance: Well-appearing, Well-nourished, lying in bed comfortable Skin: Warm, dry, no obvious rash; left middle finger has flap laceration at the distal phalanx, no active bleeding noted. Eyes: sclera anicteric, no conjunctival pallor HENT: mucous membranes moist Neck: deferred Respiratory: No signs of respiratory distress Cardiovascular: Appears well perfused, pulses are nml Abdomen: deferred Musculoskeletal: Moving all 4 extremities without obvious discomfort Neurological: Awake and alert, mentation is normal, speech is fluent and appropriate Psychiatric: affect is normal, does not appear anxious or depressed Triage Information Reviewed: Yes Vital Signs On Initial Exam: Initial Vitals Temp Pulse Resp BP Pulse Ox 98.7 F 73 15 128/74 98 01/18/20 23:59 01/18/20 23:59 01/18/20 23:59 01/18/20 23:59 01/18/20 23:59 Vital Signs Reviewed: Yes Procedures - Sedation Patient Received Moderate/Deep Sedation with Procedure: No - Laceration/Wound Repair 3rd left finger Location: Other - 3rd left finger Closure: Skin Adhesive Layer Closure?: Yes Sterile Dressing Applied?: Yes - bandage Diagnostics - Vital Signs Vital Signs Temp Pulse Resp BP Pulse Ox 01/18/20 23:59 98.7 F 73 15 128/74 98 - Laboratory Lab Statement: Any lab studies that have been ordered have been reviewed, and results considered in the medical decision making process. Laceration Repair Course/Dx - Course Course Of Treatment: Patient is a 39 y/o F presenting to [facility] with a laceration to the 3rd finger of her left hand. She states that she was making face masks when she sustained the laceration to this finger. Patient notes that she immediately cleaned the laceration by running water over the finger and then dried the area with paper towel. On physical exam, left middle finger has flap laceration at the distal phalanx, no active bleeding noted. Laceration was repaired using dermabond. Bandage was applied to the area. Patient was discharged to home with PCP followup as needed. - Clinical Impression Provider Diagnoses: Laceration of left middle finger - Critical Care Time Critical Care Statement: Critical care time is provided exclusive of any time spent performing procedures. Discharge ED - Sign-Out/Discharge Documenting (check all that apply): Patient Departure - discharge - Discharge Plan Condition: Stable Disposition: HOME Patient Education Materials: Laceration (ED), Skin Adhesive Care (ED) Referrals: Mercedez Shaver MD [Primary Care Provider] - If Needed - Attestation Statements Document Initiated by Scribe: Yes Documenting Scribe: JOÃO SANTILLAN Provider For Whom Scribe is Documenting (Include Credential): HERMILA JIMÉNEZ MD Scribe Attestation: IJOÃO, scribed for HERMILA JIMÉNEZ MD on 01/19/20 at 0046. Status of Scribe Document: Ready
== END 2020-01-19 00:54 | disposition home or self-care (01) ==
LOC: ED 23:53
DX: S61.213A Laceration without foreign body of left middle finger without damage to nail, initial encounter (principal); W45.8XXA Other foreign body or object entering through skin, initial encounter; Y93.D2 Activity, sewing; Y92.9 Unspecified place or not applicable; Z79.899 Other long term (current) drug therapy; Z87.891 Personal history of nicotine dependence; F41.9 Anxiety disorder, unspecified; F32.9 Major depressive disorder, single episode, unspecified
CPT/HCPCS: 99281; J3490